=== PATIENT | male | born 1945 | race Caucasian/White ===

== ENCOUNTER 2021-12-01 16:25 | Inpatient (IN) | payer MEDICARE, OTHER ==
[~2021-12-01] VITALS: Ht 175.3 cm; Wt 64.0 kg
--- NOTE | 2021-12-01 16:25 | NUR ---
BIB PA FROM SNF C/O RIGHT REN MASS GROWTH, WOUND ON THE MASS AND HAS DRAINAGE. ATTACHED TO MONITOR, VITALS ARE WITHIN NORMAL LIMITS. PT IS A&OX2. AWAITING MD ORDERS.
[2021-12-01] MEDS ORDERED: POVI3780 TP (16:43)
[2021-12-01] MEDS ORDERED: DIVA-76 PO (16:43)
[2021-12-01] MEDS ORDERED: OLAN5TAB3 PO (16:43)
[2021-12-01] MEDS ORDERED: MULT-447 PO (16:43)
[2021-12-01] MEDS ORDERED: TRIH2TAB3 PO (16:43)
--- NOTE | 2021-12-01 16:52 | NUR ---
IV ESTABLISHED R AC 18G. LABS DRAWN AND SENT.
--- NOTE | 2021-12-01 16:57 | NUR ---
COVID TEST COLLECTED AND SENT
[2021-12-01] MEDS ORDERED: CLINDAMYCIN 600 MG in IV D5W 100 ML IV ONE (17:00)
--- NOTE | 2021-12-01 17:00 | NUR ---
MOVE SHEET SUBMITTED.
--- NOTE | 2021-12-01 17:48 | NUR ---
[facility] CALLED BOTTOM BLEACHER PAGED.
[2021-12-01 17:53] LABS: BASOPHILS % (AUTO) 0.6 % (0.0-2.0); EOSINOPHILS % (AUTO) 5.4 % (0.0-6.0); HEMATOCRIT 45 % (39-51); HEMOGLOBIN 15.3 g/dL (13.5-17.5); LYMPHOCYTES # (AUTO) 1.6 K/uL (0.8-4.8); LYMPHOCYTES % (AUTO) 27.1 % (20.0-44.0); MEAN CORPUSCULAR HGB CONC 34 g/dl (31.0-36.0); MEAN CORPUSCULAR VOLUME 92 fL (80-96); MONOCYTES % (AUTO) 16.8 % (2.0-12.0); NEUTROPHILS % (AUTO) 50.1 % (43.0-81.0); PLATELET COUNT (AUTO) 188 K/uL (150-450); RED BLOOD CELL COUNT(AUTO) 4.95 MIL/uL (4.5-6.0); WHITE BLOOD COUNT (AUTO) 5.9 K/uL (4.3-11.0)
[2021-12-01 18:03] LABS: CALCIUM, SERUM 9.8 mg/dL (8.5-10.1); CREATININE 0.8 mg/dL (0.6-1.3); POTASSIUM 4.4 mmol/L (3.5-5.1)
[2021-12-01 18:21] LABS: ALBUMIN 3.9 g/dL (3.4-5.0); BILIRUBIN,DIRECT 0.1 mg/dL (0.0-0.2); BILIRUBIN,TOTAL 0.4 mg/dL (0.2-1.0); TOTAL PROTEIN, SERUM 8.5 g/dL (6.4-8.2)
--- NOTE | 2021-12-01 20:20 | NUR ---
REPORT GIVEN TO MURRAY ADHIKARI
[2021-12-01] MEDS ORDERED: ONDANSETRON HCL/PF 4 MG/2 ML VIAL IVP PRN (20:30)
[2021-12-01] MEDS ORDERED: POVIDONE-IODINE OINT 28.4 GM TUBE TP ONE (20:30)
--- NOTE | 2021-12-01 20:34 | NUR ---
PATIENT TRANSFERRED TO [facility]
--- NOTE | 2021-12-01 20:35 | NUR ---
ADMISSION NOTES PT ARRIVED VIA GURNEY ACCOMPANIED BY EMT. AOx4, ABLE TO MAKE NEEDS KNOWN. ON RA AND TOLERATING WELL. NO SOB NOTED. NO S/SX OF RESPIRATORY DISTRESS NOTED. IV ACCESS IN RAC #18 G RUNNING NS @ 75 ML/HR. WOUND PICTURES TAKEN. WOUND CARE DONE. SAFETY PRECAUTIONS IN PLACE: BED IN LOWEST, LOCKED POSITION, SIDERAILS UPx2, AND BRAKES ON. TABLE AND CALL LIGHT WITHIN REACH. ALL NEEDS MET AT THIS TIME.
[2021-12-01] MEDS ORDERED: CLINDAMYCIN IV RTU IN D5W 900 MG/50 ML PIGGYBACK IV SCH (21:00)
[2021-12-01] MEDS: OLANZAPINE 5 MG TABLET PO SCH (21:24)
[2021-12-01] MEDS: DIVALPROEX SODIUM 250 MG TABLET.DR PO SCH (21:24)
[2021-12-01] MEDS: CLINDAMYCIN 900 MG in IV D5W 50 ML IV SCH (21:24)
[2021-12-01] MEDS: TRIHEXYPHENIDYL HCL 2 MG TABLET PO SCH (21:24)
[2021-12-01] MEDS: ENOXAPARIN SODIUM 40 MG/0.4 ML DISP.SYRIN SQ SCH (21:25)
[2021-12-01] MEDS: IV NS 0.9% 1,000 ML IV PRN (21:55)
[2021-12-01 22:07] LABS: BAND % (MANUAL) 1 % (0.0-5.0); EOSINOPHILS % (MANUAL) 2 % (0-4); LYMPHOCYTES % (MANUAL) 23 % (16-48); MONOCYTES % (MANUAL) 5 % (0-11.0); NEUTROPHILS % (MANUAL) 69 (42-76)
[2021-12-01 22:26] VITALS: BP 134/91
[2021-12-02] MEDS: CLINDAMYCIN 900 MG in IV D5W 50 ML IV SCH ×3 (04:24→20:15)
--- NOTE | 2021-12-02 06:35 | NUR ---
RN CLOSING NOTES PT LYING IN BED, ASLEEP, AWAKENS TO VERBAL STIMULI. AOx4, ABLE TO MAKE NEEDS KNOWN. ON RA AND TOLERATING WELL. NO SOB NOTED. NO S/SX OF RESPIRATORY DISTRESS NOTED. IV ACCESS IN RAC #18 G RUNNING NS @ 75 ML/HR. WOUND PICTURES TAKEN. WOUND CARE DONE. ALL ORDERS CARRIED OUT. ALL NEEDS MET. PT KEPT CLEAN AND DRY. SAFETY PRECAUTIONS IN PLACE: BED IN LOWEST, LOCKED POSITION, SIDERAILS UPx2, AND BRAKES ON. TABLE AND CALL LIGHT WITHIN REACH. WILL ENDORSE TO ONCOMING SHIFT FOR CATARINO.
[2021-12-02 06:55] LABS: BASOPHILS % (AUTO) 0.8 % (0.0-2.0); EOSINOPHILS % (AUTO) 6.8 % (0.0-6.0); HEMATOCRIT 40 % (39-51); HEMOGLOBIN 13.5 g/dL (13.5-17.5); LYMPHOCYTES # (AUTO) 1.2 K/uL (0.8-4.8); LYMPHOCYTES % (AUTO) 27.9 % (20.0-44.0); MEAN CORPUSCULAR HGB CONC 34 g/dl (31.0-36.0); MEAN CORPUSCULAR VOLUME 92 fL (80-96); MONOCYTES # (AUTO) 0.8 K/uL (0.1-1.30); MONOCYTES % (AUTO) 18.2 % (2.0-12.0); NEUTROPHILS % (AUTO) 46.3 % (43.0-81.0); PLATELET COUNT (AUTO) 156 K/uL (150-450); RED BLOOD CELL COUNT(AUTO) 4.33 MIL/uL (4.5-6.0); WHITE BLOOD COUNT (AUTO) 4.3 K/uL (4.3-11.0)
[2021-12-02 07:16] LABS: CALCIUM, SERUM 8.6 mg/dL (8.5-10.1); CARBON DIOXIDE 27 mmol/L (21-32); CHLORIDE 98 mmol/L (98-107); CREATININE 0.6 mg/dL (0.6-1.3); GLUCOSE 82 mg/dL (74-106); PHOSPHORUS 4.1 mg/dL (2.5-4.9); POTASSIUM 4.2 mmol/L (3.5-5.1); SODIUM SERUM 130 mmol/L (136-145); UREA NITROGEN, BLOOD 12 mg/dL (7-18)
--- NOTE | 2021-12-02 07:40 | NUR ---
MS RN OPENING NOTE PATIENT RECEIVED IN BED AND AWAKE. A/O X4 AND ABLE TO VERBALIZE ALL NEEDS. IV ACCESS TO RAC IN TACT AND PATENT WITH NS RUNNING CONTINUOUSLY @ 75ML/HR. NO C/O OR DISTRESS OBSERVED UPON ASSESSMENT. SAFETY MEASURES INTACT, CALL LIGHT WITHIN REACH. WILL CONT TO MONITOR.
[2021-12-02 08:00] VITALS: BP 116/93
--- NOTE | 2021-12-02 08:28 | NUR ---
WOUND CARE CONSULT: PT PRESENTS WITH LESION TO RT LOWER LEG, PRESENT ON ADMISSION. DR HURD CALLED FOR SURGICAL CONSULT. RECOMMENDATIONS MADE FOR SKIN PROTECTION. DISCUSSED WITH NURSING STAFF. MD IN AGREEMENT WITH PLAN OF CARE.
[2021-12-02] MEDS: TRIHEXYPHENIDYL HCL 2 MG TABLET PO SCH ×2 (08:34→16:24)
[2021-12-02] MEDS: DIVALPROEX SODIUM 250 MG TABLET.DR PO SCH ×3 (08:34→16:24)
[2021-12-02] MEDS: MULTIVIT W/MINERALS 1 TAB TABLET PO SCH (08:34)
[2021-12-02] MEDS: OLANZAPINE 5 MG TABLET PO SCH ×2 (08:35→20:15)
[2021-12-02 12:16] LABS: BAND % (MANUAL) 1 % (0.0-5.0); EOSINOPHILS % (MANUAL) 6 % (0-4); LYMPHOCYTES % (MANUAL) 28 % (16-48); MONOCYTES % (MANUAL) 14 % (0-11.0); NEUTROPHILS % (MANUAL) 51 (42-76)
[2021-12-02] MEDS: IV NS 0.9% 1,000 ML IV PRN (13:01)
[2021-12-02 16:00] VITALS: BP_SYST 108; BP_SYST 124; BP_DIAS 66; BP_DIAS 72
--- NOTE | 2021-12-02 18:48 | NUR ---
RN CLOSING NOTE PATIENT REMAINED IN BED AND INTERMITTENTLY SLEEPING ON SHIFT. CONTINUES TO BE A/O X4 AND ABLE TO VERBALIZE ALL NEEDS. IV ACCESS TO RAC REMAINS INTACT AND PATENT WITH NS RUNNING CONTINUOUSLY @ 75ML/HR. PATIENT RECEIVED IV ANTIBIOTICS ON SHIFT WITH NO S/SX OF ADVERSE REACTION TO MEDICATION. TOLERATED WEL. NO C/O PAIN OR DISTRESS OBSERVED ON SHIFT. PATIENT SEEN BY WOUND NURSE DURING SHIFT. TREATMENT TO AFFECTED AREA INCLUDES CLEANSING WITH DAKINS THEN COVERING WITH DRY DRESSING DAILY PER DR. MULLEN. PATIENT TOLERATED ALL MEALS WELL ON SHIFT. SAFETY MEASURES INTACT, CALL LIGHT WITHIN REACH. WILL CONT TO MONITOR.
--- NOTE | 2021-12-02 19:40 | NUR ---
RN OPENING NOTES RECEIVED PT IN BED,WATCHING TV. AOx4, ABLE TO MAKE NEEDS KNOWN. ON RA AND TOLERATING WELL. NO SOB NOTED. NO S/SX OF RESPIRATORY DISTRESS NOTED. IV ACCESS IN RAC #18 G RUNNING NS @ 75 ML/HR. SAFETY PRECAUTIONS IN PLACE: BED IN LOWEST, LOCKED POSITION, SIDERAILS UPx2, AND BRAKES ON. TABLE AND CALL LIGHT WITHIN REACH. ALL NEEDS MET AT THIS TIME.
[2021-12-02 20:00] VITALS: BP 115/75
[2021-12-02] MEDS: ENOXAPARIN SODIUM 40 MG/0.4 ML DISP.SYRIN SQ SCH ×2 (20:17→20:37)
[2021-12-02] MEDS ORDERED: CEFEPIME 2 GM in IV D5W 100 ML IV SCH ×2 (21:00→22:00)
[2021-12-03] MEDS: CLINDAMYCIN 900 MG in IV D5W 50 ML IV SCH ×3 (04:40→21:12)
--- NOTE | 2021-12-03 06:01 | NUR ---
RN NOTES DURING PT CARE NOTED NEW RASH AND REDNESS TO LOWER ABDOMEN AFTER GIVING FIRST DOSE OF CEFEPIME. JORGE LUIS ALLISON MADE AWARE. PER AMARILYS KANG CEFEPIME AND ORDERED 25 MG PO BENADRYL.
[2021-12-03] MEDS ORDERED: diphenhydrAMINE HCL 25 MG CAPSULE PO ONE (06:30)
--- NOTE | 2021-12-03 06:48 | NUR ---
RN CLOSING NOTES PT LAYING IN BED, ASLEEP, AWAKENS TO VERBAL STIMULI. AOx4, ABLE TO MAKE NEEDS KNOWN. ON RA AND TOLERATING WELL. NO SOB NOTED. NO S/SX OF RESPIRATORY DISTRESS NOTED. IV ACCESS IN RAC #18 G RUNNING NS @ 75 ML/HR. ALL ORDERS CARRIED OUT. ALL NEEDS MET. PT KEPT CLEAN AND DRY. WOUND CARE DONE. WOUND CULTURE COLLECTED. SAFETY PRECAUTIONS IN PLACE: BED IN LOWEST, LOCKED POSITION, SIDERAILS UPx2, AND BRAKES ON. TABLE AND CALL LIGHT WITHIN REACH. WILL ENDORSE TO ONCOMING SHIFT FOR CATARINO.
--- NOTE | 2021-12-03 07:35 | NUR ---
RN OPENING NOTES RECEIVED PT LYING IN BED WITH HOB ELEVATED, AOx4, HARD OF HEARING, ABLE TO MAKE NEEDS KNOWN. ON RA AND TOLERATING WELL AT 96%, BREATHING EVEN AND UNLABORED, NO SOB NOTED. NO S/SX OF ANY APPARENT DISTRESS NOTED. IV ACCESS IN RAC #18 G RUNNING NS @ 75 ML/HR, INFUSING WELL. PATIENT IS BED BOUND. SAFETY PRECAUTIONS IN PLACE: BED IN LOWEST POSITION, LOCKED, SIDERAILS UPx2, BED ALARM ON, TRAY TABLE AND CALL LIGHT WITHIN REACH. FOR POSSIBLE BIOPSY OF RLE WOUND TODAY. WILL CONTINUE TO MONITOR DURING SHIFT.
[2021-12-03 08:00] VITALS: BP 120/88
--- NOTE | 2021-12-03 08:16 | NUR ---
WOUND CARE CONSULT: PT SEEN FOR DRY LESION/SCAR TO TOP OF SCALP. NO TENDERNESS OR DRAINAGE NOTED. PT STATES HAD LASER TREATMENT AND WILL FOLLOW UP WITH HIS OWN DOCTOR AFTER DISCHARGE.
[2021-12-03] MEDS: TRIHEXYPHENIDYL HCL 2 MG TABLET PO SCH ×2 (09:05→17:01)
[2021-12-03] MEDS: OLANZAPINE 5 MG TABLET PO SCH ×2 (09:06→21:32)
[2021-12-03] MEDS: MULTIVIT W/MINERALS 1 TAB TABLET PO SCH (09:06)
[2021-12-03] MEDS: DIVALPROEX SODIUM 250 MG TABLET.DR PO SCH ×3 (09:06→17:01)
[2021-12-03] MEDS: DAKINS QUARTER STRENGTH (0.125%) 480 ML BOTTLE TOP SCH (09:15)
[2021-12-03] MEDS ORDERED: LIDOCAINE 1%-EPI 1:200,000 SDV 10 ML VIAL IJ ONE (14:00)
--- NOTE | 2021-12-03 14:11 | NUR ---
RN NOTES - DR MULLEN AT BEDSIDE COLLECTING BIOPSY OF THE RLL WOUND.
[2021-12-03 16:00] VITALS: BP 123/80
--- NOTE | 2021-12-03 16:50 | NUR ---
RN NOTES - IV INFILTRATION, WILL INSERT A NEW ACCESS.
[2021-12-03 17:00] VITALS: BP 123/80
[2021-12-03] MEDS: IV NS 0.9% 1,000 ML IV PRN (18:04)
--- NOTE | 2021-12-03 18:50 | NUR ---
RN CLOSING NOTES PT LYING IN BED WITH HOB ELEVATED, AOx4, ABLE TO MAKE NEEDS KNOWN. ON RA AND TOLERATING WELL AT 97%, BREATHING EVEN AND UNLABORED, NO SOB NOTED. NO S/SX OF ANY APPARENT DISTRESS NOTED. NEW IV ACCESS LEFT HAND G#24 RUNNING NS @ 75 ML/HR, INFUSING WELL. WOUND CARE PROVIDED. ALL NEEDS MET AND DUE MEDS GIVEN. SAFETY PRECAUTIONS MAINTAINED: BED IN LOWEST POSITION, LOCKED, SIDERAILS UPx2, BED ALARM ON, TRAY TABLE AND CALL LIGHT WITHIN REACH.
[2021-12-03 20:00] VITALS: BP 104/67
[2021-12-03] MEDS: ENOXAPARIN SODIUM 40 MG/0.4 ML DISP.SYRIN SQ SCH (21:52)
--- NOTE | 2021-12-03 21:53 | NUR ---
ANTICOAGULANT H/H 13.540 Plt 156 No s/s of bleeding. Given Lovenox injection co-signed by MURRAY Mena.
[2021-12-04] MEDS: CLINDAMYCIN 900 MG in IV D5W 50 ML IV SCH (05:24)
--- NOTE | 2021-12-04 06:17 | NUR ---
END OF SHIFT REPORT Patient in bed, Alert Oriented x3, Forgetful, confused at times. Oxygen sat 92% on RA, denies sob. RFA IV line intact, IVF infusing. On IV abx. Afebrile. Right leg wound, dressing clean and dry, no c/o pain at this time. No acute distress during the shift. Plan for cont IVF, Abx, Wound care. Fall precaution maintained. Wound cx G/S pending result. Patient refused bld draw for am lab, declined education. Will try and attempt again. Will endorse to oncoming RN.
--- NOTE | 2021-12-04 07:05 | NUR ---
MS RN OPENING NOTES RECEIVED PATIENT SLEEPING IN BED, A/Ox3, ABLE TO MAKE NEEDS KNOWN, EPISODES OF CONFUSION, [place] R SIDE. ON ROOM AIR NO S/S OF RESPIRATORY DISTRESS, NO S/S OF PAIN OR DISCOMFORT NOTED. IV ACCESS R FA #22 WITH NS RUNNING @75 ML/HR. PATIENT USES URINAL. SKIN ISSUES: R LOWER LEG LESION. SAFETY MEASURES IN PLACE: BED LOCKED AND IN LOWEST POSITION, SIDE RAILS UP x2, CALL LIGHT WITHIN REACH, HOB ELEVATED. WILL CONTINUE TO MONITOR.
[2021-12-04 08:00] VITALS: BP 111/73
[2021-12-04] MEDS: DAKINS QUARTER STRENGTH (0.125%) 480 ML BOTTLE TOP SCH (08:21)
[2021-12-04] MEDS: OLANZAPINE 5 MG TABLET PO SCH ×2 (08:21→21:40)
[2021-12-04] MEDS: MULTIVIT W/MINERALS 1 TAB TABLET PO SCH (08:21)
[2021-12-04] MEDS: DIVALPROEX SODIUM 250 MG TABLET.DR PO SCH ×3 (08:21→16:51)
[2021-12-04] MEDS: TRIHEXYPHENIDYL HCL 2 MG TABLET PO SCH ×2 (08:21→16:51)
[2021-12-04] MEDS: IV NS 0.9% 1,000 ML IV PRN ×2 (08:31→22:57)
[2021-12-04] MEDS: LEVOFLOXACIN (250MG) 250 MG TABLET PO SCH (11:32)
[2021-12-04 11:41] LABS: BASOPHILS % (AUTO) 0.6 % (0.0-2.0); EOSINOPHILS % (AUTO) 5.5 % (0.0-6.0); HEMATOCRIT 42 % (39-51); HEMOGLOBIN 14.2 g/dL (13.5-17.5); LYMPHOCYTES # (AUTO) 1.2 K/uL (0.8-4.8); LYMPHOCYTES % (AUTO) 24.6 % (20.0-44.0); MEAN CORPUSCULAR HGB CONC 34 g/dl (31.0-36.0); MEAN CORPUSCULAR VOLUME 91 fL (80-96); MONOCYTES # (AUTO) 0.7 K/uL (0.1-1.30); MONOCYTES % (AUTO) 13.6 % (2.0-12.0); NEUTROPHILS # (AUTO) 2.8 K/uL (1.8-8.9); NEUTROPHILS % (AUTO) 55.7 % (43.0-81.0); PLATELET COUNT (AUTO) 181 K/uL (150-450); RED BLOOD CELL COUNT(AUTO) 4.56 MIL/uL (4.5-6.0)
[2021-12-04 11:52] LABS: CALCIUM, SERUM 8.7 mg/dL (8.5-10.1); CREATININE 0.6 mg/dL (0.6-1.3); MAGNESIUM 1.9 mg/dL (1.8-2.4); PHOSPHORUS 3.5 mg/dL (2.5-4.9); POTASSIUM 4.1 mmol/L (3.5-5.1)
[2021-12-04 16:00] VITALS: BP 108/73
--- NOTE | 2021-12-04 18:45 | NUR ---
MS RN CLOSING NOTES PATIENT SLEEPING IN BED, A/Ox3, ABLE TO MAKE NEEDS KNOWN, EPISODES OF CONFUSION, [place] R SIDE. STABLE ON ROOM AIR NO S/S OF RESPIRATORY DISTRESS, NO S/S OF PAIN OR DISCOMFORT NOTED. IV ACCESS R FA #22 WITH NS RUNNING @75 ML/HR. PATIENT USES URINAL. ALL PRESCRIBED MEDICATION ADMINISTERED. SKIN ISSUES: R LOWER LEG LESION. SAFETY MEASURES MAINTAINED: BED LOCKED AND IN LOWEST POSITION, SIDE RAILS UP x2, CALL LIGHT WITHIN REACH, HOB ELEVATED SLIGHTLY. WILL ENDORSE TO NEXT SHIFT ANY CATARINO.
--- NOTE | 2021-12-04 19:15 | NUR ---
RN OPENING NOTE PATIENT IN BED, AWAKE. PATIENT IS ABLE TO MAKE NEEDS KNOWN. PATIENT NOTED TO HAVE HEARING DIFFICULTIES. PATIENT IS A/O X 2-3 AT THIS TIME. PATIENT HAS A RFA 22 G WITH NS ONGOING AT 75 ML/HR, INFUSING WELL. PATIENT DOES NOT REPORT OF ANY PAIN AT THIS TIME, BUT PATIENT REQUESTS IF HE CAN TAKE A STOOL SOFTENER OR LAXATIVE TONIGHT, NO BM FOR 3 DAYS. SAFETY MEASURES IN PLACE: BED LOCKED AND IN LOWEST POSITION, CALL LIGHT WITHIN REACH, SIDE RAILS UP. WILL MONITOR PATIENT CLOSELY.
[2021-12-04 20:00] VITALS: BP 99/68
[2021-12-04] MEDS ORDERED: MAGNESIUM HYDROXIDE 30 ML UDC PO ONE (21:30)
[2021-12-04] MEDS: DOXYCYCLINE HYCLATE (100 MG) 100 MG TABLET PO SCH (21:40)
--- NOTE | 2021-12-04 21:40 | NUR ---
RN NOTE MOM GIVEN FOR CONSTIPATION. MD ALSO ORDERED DOCUSATE SODIUM BID
[2021-12-04] MEDS: ENOXAPARIN SODIUM 40 MG/0.4 ML DISP.SYRIN SQ SCH (21:42)
--- NOTE | 2021-12-05 06:40 | NUR ---
RN CLOSING NOTE PATIENT IN BED, EYES CLOSED. PATIENT IS ABLE TO MAKE NEEDS KNOWN. PATIENT NOTED TO HAVE HEARING DIFFICULTIES. PATIENT IS A/O X 2-3 AT THIS TIME. PATIENT HAS A RFA 22 G WITH NS ONGOING AT 75 ML/HR, INFUSING WELL. PATIENT DID NOT REPORT ANY PAIN DURING THE SHIFT. SAFETY MEASURES IN PLACE: BED LOCKED AND IN LOWEST POSITION, CALL LIGHT WITHIN REACH, SIDE RAILS UP. ALL NEEDS MET AND ATTENDED. ALL ORDERS CARRIED OUT. WILL ENDORSE TO DAY SHIFT NURSE FOR CATARINO.
[2021-12-05 07:00] VITALS: BP 126/79
--- NOTE | 2021-12-05 07:07 | NUR ---
MS RN OPENING NOTES RECEIVED PATIENT SLEEPING IN BED, A/Ox3, ABLE TO MAKE NEEDS KNOWN, EPISODES OF CONFUSION, [place] R SIDE. ON ROOM AIR NO S/S OF RESPIRATORY DISTRESS, NO S/S OF PAIN OR DISCOMFORT NOTED. IV ACCESS R FA #22 WITH NS RUNNING @75 ML/HR. PATIENT USES URINAL. SKIN ISSUES: R LOWER LEG LESION. SAFETY MEASURES IN PLACE: BED LOCKED AND IN LOWEST POSITION, SIDE RAILS UP x2, CALL LIGHT WITHIN REACH, HOB ELEVATED. WILL CONTINUE TO MONITOR.
[2021-12-05] MEDS: OLANZAPINE 5 MG TABLET PO SCH ×2 (09:18→21:10)
[2021-12-05] MEDS: MULTIVIT W/MINERALS 1 TAB TABLET PO SCH (09:18)
[2021-12-05] MEDS: TRIHEXYPHENIDYL HCL 2 MG TABLET PO SCH ×2 (09:18→16:12)
[2021-12-05] MEDS: DAKINS QUARTER STRENGTH (0.125%) 480 ML BOTTLE TOP SCH (09:18)
[2021-12-05] MEDS: DIVALPROEX SODIUM 250 MG TABLET.DR PO SCH ×3 (09:18→16:12)
[2021-12-05] MEDS: DOXYCYCLINE HYCLATE (100 MG) 100 MG TABLET PO SCH ×2 (09:18→21:09)
[2021-12-05] MEDS: DOCUSATE SODIUM 100 MG CAPSULE PO SCH ×2 (09:18→16:11)
[2021-12-05] MEDS ORDERED: DOXY100T2 PO (10:07)
[2021-12-05] MEDS ORDERED: LEVO250T59 PO (10:07)
[2021-12-05] MEDS: LEVOFLOXACIN (250MG) 250 MG TABLET PO SCH (10:34)
[2021-12-05 16:00] VITALS: BP 119/81
[2021-12-05] MEDS: IV NS 0.9% 1,000 ML IV PRN (16:35)
--- NOTE | 2021-12-05 18:38 | NUR ---
MS RN CLOSING NOTES PATIENT SLEEPING IN BED, A/Ox3, ABLE TO MAKE NEEDS KNOWN, EPISODES OF CONFUSION, [place] R SIDE. STABLE ON ROOM AIR NO S/S OF RESPIRATORY DISTRESS, NO S/S OF PAIN OR DISCOMFORT NOTED. IV ACCESS R FA #22 WITH NS RUNNING @75 ML/HR. PATIENT USES URINAL. ALL PRESCRIBED MEDICATION ADMINISTERED. SKIN ISSUES: R LOWER LEG LESION. SAFETY MEASURES MAINTAINED: BED LOCKED AND IN LOWEST POSITION, SIDE RAILS UP x2, CALL LIGHT WITHIN REACH, HOB ELEVATED SLIGHTLY. WILL ENDORSE TO NEXT SHIFT ANY CATARINO.
[2021-12-05 20:00] VITALS: BP 102/73
[2021-12-05] MEDS: ENOXAPARIN SODIUM 40 MG/0.4 ML DISP.SYRIN SQ SCH (21:17)
[2021-12-06] MEDS: IV NS 0.9% 1,000 ML IV PRN ×2 (01:19→18:10)
--- NOTE | 2021-12-06 07:07 | NUR ---
MS RN OPENING NOTES RECEIVED PATIENT SLEEPING IN BED, A/Ox3, ABLE TO MAKE NEEDS KNOWN, EPISODES OF CONFUSION, [place] R SIDE. ON ROOM AIR NO S/S OF RESPIRATORY DISTRESS, NO S/S OF PAIN OR DISCOMFORT NOTED. IV ACCESS R FA #22 WITH NS RUNNING @75 ML/HR. PATIENT USES URINAL. SKIN ISSUES: R LOWER LEG LESION. SAFETY MEASURES IN PLACE: BED LOCKED AND IN LOWEST POSITION, SIDE RAILS UP x2, CALL LIGHT WITHIN REACH, HOB ELEVATED. WILL CONTINUE TO MONITOR.
[2021-12-06 08:00] VITALS: BP 123/73
[2021-12-06] MEDS: TRIHEXYPHENIDYL HCL 2 MG TABLET PO SCH ×2 (09:34→16:38)
[2021-12-06] MEDS: DOCUSATE SODIUM 100 MG CAPSULE PO SCH ×2 (09:34→16:38)
[2021-12-06] MEDS: OLANZAPINE 5 MG TABLET PO SCH ×2 (09:34→20:59)
[2021-12-06] MEDS: MULTIVIT W/MINERALS 1 TAB TABLET PO SCH (09:34)
[2021-12-06] MEDS: DIVALPROEX SODIUM 250 MG TABLET.DR PO SCH ×3 (09:34→16:38)
[2021-12-06] MEDS: DOXYCYCLINE HYCLATE (100 MG) 100 MG TABLET PO SCH ×2 (09:34→20:59)
[2021-12-06] MEDS: DAKINS QUARTER STRENGTH (0.125%) 480 ML BOTTLE TOP SCH (09:35)
[2021-12-06] MEDS: LEVOFLOXACIN (250MG) 250 MG TABLET PO SCH (12:23)
[2021-12-06 16:00] VITALS: BP 110/72
[2021-12-06] MEDS: ENSURE ENLIVE 237 ML LIQUID (VANILLA) PO SCH (17:26)
--- NOTE | 2021-12-06 18:38 | NUR ---
MS RN CLOSING NOTES PATIENT AWAKE IN BED, A/Ox3, ABLE TO MAKE NEEDS KNOWN, EPISODES OF CONFUSION, [place] R SIDE. STABLE ON ROOM AIR NO S/S OF RESPIRATORY DISTRESS, NO S/S OF PAIN OR DISCOMFORT NOTED. IV ACCESS R FA #22 WITH NS RUNNING @75 ML/HR. PATIENT USES URINAL. ALL PRESCRIBED MEDICATION ADMINISTERED. SKIN ISSUES: R LOWER LEG LESION. SAFETY MEASURES MAINTAINED: BED LOCKED AND IN LOWEST POSITION, SIDE RAILS UP x2, CALL LIGHT WITHIN REACH, HOB ELEVATED SLIGHTLY. WILL ENDORSE TO NEXT SHIFT ANY CATARINO.
--- NOTE | 2021-12-06 19:25 | NUR ---
MS RN OPENING NOTE RECEIVED PATIENT AWAKE IN BED, A/Ox3, ABLE TO MAKE NEEDS KNOWN, EPISODES OF CONFUSION. PT IS HARD OF HEARING TO RIGHT EAR. ON ROOM AIR, TOLERATING RA WELL. NO S/S OF RESPIRATORY DISTRESS, NO S/S OF PAIN OR DISCOMFORT NOTED. IV ACCESS TO RIGHT FA #22 WITH NS RUNNING @75 ML/HR. PATIENT USES URINAL. HAS RIGHT LOWER LEG LESION. SAFETY MEASURES IN PLACE: BED LOCKED AND IN LOWEST POSITION, SIDE RAILS UP x2, CALL LIGHT WITHIN REACH, HOB ELEVATED. WILL CONTINUE TO MONITOR.
[2021-12-06 20:00] VITALS: BP 121/79
[2021-12-06] MEDS: ENOXAPARIN SODIUM 40 MG/0.4 ML DISP.SYRIN SQ SCH (21:01)
--- NOTE | 2021-12-07 07:20 | NUR ---
MS RN CLOSING NOTE LEFT PATIENT IN BED, EYES CLOSED. PATIENT IS ABLE TO MAKE NEEDS KNOWN. PATIENT NOTED TO HAVE HEARING DIFFICULTIES. PATIENT IS A/O X 2-3. PATIENT HAS A RFA 22 G WITH NS ONGOING AT 75 ML/HR, INFUSING WELL. PATIENT DID NOT REPORT ANY PAIN DURING THE SHIFT. SAFETY MEASURES IN PLACE: BED LOCKED AND IN LOWEST POSITION, CALL LIGHT WITHIN REACH, SIDE RAILS UP. ALL NEEDS ATTENDED. ALL ORDERS CARRIED OUT. WILL ENDORSE TO DAY SHIFT NURSE FOR CATARINO.
--- NOTE | 2021-12-07 07:31 | NUR ---
MS RN OPENING NOTES RECEIVED PATIENT AWAKE IN BED, A/Ox3, ABLE TO MAKE NEEDS KNOWN, EPISODES OF CONFUSION, HARD OF HEARING ON RIGHT EAR. ON ROOM AIR .NO S/S OF RESPIRATORY DISTRESS, NO S/S OF PAIN OR DISCOMFORT NOTED. IV ACCESS R FA #22 WITH NS RUNNING @75 ML/HR. IV SITE PATENT AND INTACT.PATIENT USES URINAL. RIGHT LOWER LEG LESION. DRESSING INTACT.ALL SAFETY MEASURES IN PLACE: BED LOCKED AND IN LOWEST POSITION, SIDE RAILS UP x2, CALL LIGHT AND TABLE WITHIN REACH, HOB ELEVATED. WILL CONTINUE TO MONITOR.
[2021-12-07] MEDS: IV NS 0.9% 1,000 ML IV PRN ×2 (07:38→20:34)
[2021-12-07 08:00] VITALS: BP 135/82
[2021-12-07] MEDS: DOXYCYCLINE HYCLATE (100 MG) 100 MG TABLET PO SCH ×2 (08:43→20:20)
[2021-12-07] MEDS: MULTIVIT W/MINERALS 1 TAB TABLET PO SCH (08:44)
[2021-12-07] MEDS: OLANZAPINE 5 MG TABLET PO SCH ×2 (08:44→20:19)
[2021-12-07] MEDS: DIVALPROEX SODIUM 250 MG TABLET.DR PO SCH ×3 (08:45→16:36)
[2021-12-07] MEDS: TRIHEXYPHENIDYL HCL 2 MG TABLET PO SCH ×2 (08:45→16:36)
[2021-12-07] MEDS: DOCUSATE SODIUM 100 MG CAPSULE PO SCH ×2 (08:45→16:36)
[2021-12-07] MEDS: ENSURE ENLIVE 237 ML LIQUID (VANILLA) PO SCH ×2 (08:50→16:52)
[2021-12-07] MEDS: DAKINS QUARTER STRENGTH (0.125%) 480 ML BOTTLE TOP SCH (08:52)
[2021-12-07] MEDS: LEVOFLOXACIN (250MG) 250 MG TABLET PO SCH (11:45)
[2021-12-07 16:00] VITALS: BP 138/78
[2021-12-07 20:00] VITALS: BP 119/83
[2021-12-07] MEDS: ENOXAPARIN SODIUM 40 MG/0.4 ML DISP.SYRIN SQ SCH (20:22)
[2021-12-07 20:51] LABS: CALCIUM, SERUM 8.8 mg/dL (8.5-10.1); CREATININE 0.7 mg/dL (0.6-1.3); POTASSIUM 3.9 mmol/L (3.5-5.1)
--- NOTE | 2021-12-08 06:43 | NUR ---
MS RN CLOSING NOTES PATIENT AWAKE IN BED, A/Ox3, ABLE TO MAKE NEEDS KNOWN, EPISODES OF CONFUSION, HARD OF HEARING ON RIGHT EAR. ON ROOM AIR .NO S/S OF RESPIRATORY DISTRESS, NO S/S OF PAIN OR DISCOMFORT NOTED. IV ACCESS R FA #22 WITH NS RUNNING @75 ML/HR. IV SITE PATENT AND INTACT.PATIENT USES URINAL. RIGHT LOWER LEG LESION. DRESSING INTACT.ALL SAFETY MEASURES IN PLACE: ALL DUE MEDS GIVEN ORDERED.BED LOCKED AND IN LOWEST POSITION, SIDE RAILS UP x2, CALL LIGHT AND TABLE WITHIN REACH, HOB ELEVATED. WILL ENDORSE FOR CATARINO.
--- NOTE | 2021-12-08 07:24 | NUR ---
MS RN OPENING NOTES RECEIVED PATIENT AWAKE IN BED IN NO ACUTE SIGNS OF DISTRESS. A/O X 3, VERBALLY RESPONSIVE, HARD OF HEARING ON RIGHT EAR, DENIES PAIN OR ANY DISCOMFORTS AT THIS TIME. ON ROOM AIR, TOLERATING WELL, BREATHING EVEN AND UNLABORED. IV ACCESS ON RFA #222G INTACT WITH IVF OF NS RUNNING AT 75 ML/HR, NO /S OF INFILTRATION AT SITE NOTED. SAFETY MEASURES MAINTAINED: CALL LIGHT WITHIN REACH, SIDE RAILS UP X2, BED LOCKED IN LOWEST POSITION. WILL CONTINUE TO MONITOR PT
[2021-12-08 08:00] VITALS: BP 128/79
[2021-12-08] MEDS: ENSURE ENLIVE 237 ML LIQUID (VANILLA) PO SCH ×2 (08:28→16:48)
[2021-12-08] MEDS: MULTIVIT W/MINERALS 1 TAB TABLET PO SCH (08:28)
[2021-12-08] MEDS: DIVALPROEX SODIUM 250 MG TABLET.DR PO SCH ×3 (08:28→16:47)
[2021-12-08] MEDS: OLANZAPINE 5 MG TABLET PO SCH ×2 (08:28→21:03)
[2021-12-08] MEDS: DOCUSATE SODIUM 100 MG CAPSULE PO SCH ×2 (08:28→16:47)
[2021-12-08] MEDS: DOXYCYCLINE HYCLATE (100 MG) 100 MG TABLET PO SCH ×2 (08:28→21:03)
[2021-12-08] MEDS: DAKINS QUARTER STRENGTH (0.125%) 480 ML BOTTLE TOP SCH (09:18)
[2021-12-08] MEDS: TRIHEXYPHENIDYL HCL 2 MG TABLET PO SCH ×2 (09:18→16:47)
[2021-12-08] MEDS: LEVOFLOXACIN (250MG) 250 MG TABLET PO SCH (12:10)
[2021-12-08 16:00] VITALS: BP 124/79
[2021-12-08] MEDS: IV NS 0.9% 1,000 ML IV PRN (17:30)
--- NOTE | 2021-12-08 18:43 | NUR ---
MS RN CLOSING NOTES PATIENT IN BED WATCHING TV AT THIS TIME. HOB ELEVATED. A/O X 3, ABLE TO COMMUNICATE VERBALLY, HARD OF HEARING ON RIGHT EAR. PT FOR RIGHT LOWER LEG WOUND SURGERY ( EXCISON) TOMORROW BY DR MULLEN, ALL CONSENTS SIGNED AND PLACE IN PT'S CAHRT. NPO POST MIDNIGHT TO BE ENFORCED. ON ROOM AIR, TOLERATING WELL, BREATHING EVEN AND UNLABORED. IV ACCESS ON RFA #22G INTACT WITH IVF OF NS RUNNING AT 75 ML/HR, NO S/SX OF INFILTRATION AT SITE NOTED. ALL NEEDS AND CARE PROVIDED WELL. SAFETY MEASURES MAINTAINED: CALL LIGHT WITHIN REACH, SIDE RAILS UP X2, BED LOCKED IN LOWEST POSITION. WILL ENDORSE CATARINO TO HOTEL ROOM ATTENDANT NURSE.
--- NOTE | 2021-12-08 19:52 | NUR ---
RN OPENING NOTES RECEIVED PT IN BED, AWAKE, WATCHING TV. AOx4, ABLE TO MAKE NEEDS KNOWN. ON RA AND TOLERATING WELL. NO SOB NOTED. NO S/SX OF RESPIRATORY DISTRESS NOTED. IV ACCESS IN RFA #22G RUNNING NS @ 75 ML/HR. SAFETY PRECAUTIONS IN PLACE: BED IN LOWEST, LOCKED POSITION, SIDERAILS UPx2, AND BRAKES ON. TABLE AND CALL LIGHT WITHIN REACH. ALL NEEDS MET AT THIS TIME.
[2021-12-08 20:00] VITALS: BP 120/74
[2021-12-08] MEDS: ENOXAPARIN SODIUM 40 MG/0.4 ML DISP.SYRIN SQ SCH (21:00)
--- NOTE | 2021-12-08 21:06 | NUR ---
RN NOTES DID NOT ADMINISTER LOVENOX BECAUSE PT WILL HAVE PROCEDURE TOMORROW 12/09.
[2021-12-08] MEDS: ACETAMINOPHEN 325 MG TABLET PO PRN (21:14)
[2021-12-09] MEDS: IV NS 0.9% 1,000 ML IV PRN (05:15)
[2021-12-09 06:57] LABS: BASOPHILS % (AUTO) 0.4 % (0.0-2.0); EOSINOPHILS % (AUTO) 3.9 % (0.0-6.0); HEMATOCRIT 40 % (39-51); HEMOGLOBIN 13.6 g/dL (13.5-17.5); LYMPHOCYTES # (AUTO) 1.4 K/uL (0.8-4.8); LYMPHOCYTES % (AUTO) 22.3 % (20.0-44.0); MEAN CORPUSCULAR HGB CONC 34 g/dl (31.0-36.0); MEAN CORPUSCULAR VOLUME 91 fL (80-96); MONOCYTES # (AUTO) 0.8 K/uL (0.1-1.30); MONOCYTES % (AUTO) 13.1 % (2.0-12.0); NEUTROPHILS # (AUTO) 3.7 K/uL (1.8-8.9); NEUTROPHILS % (AUTO) 60.3 % (43.0-81.0); PLATELET COUNT (AUTO) 195 K/uL (150-450); RED BLOOD CELL COUNT(AUTO) 4.38 MIL/uL (4.5-6.0); WHITE BLOOD COUNT (AUTO) 6.2 K/uL (4.3-11.0)
--- NOTE | 2021-12-09 06:59 | NUR ---
RN CLOSING NOTES PT IN BED, ASLEEP, AWAKENS TO VERBAL STIMULI. AOx4, ABLE TO MAKE NEEDS KNOWN. ON RA AND TOLERATING WELL. NO SOB NOTED. NO S/SX OF RESPIRATORY DISTRESS NOTED. IV ACCESS IN RFA #22G AND LFA #18G RUNNING NS @ 75 ML/HR. ALL ORDERS CARRIED OUT. ALL NEEDS MET. PT KEPT CLEAN AND DRY. PT KEPT NPO AFTER MIDNIGHT FOR SURGERY. SAFETY PRECAUTIONS IN PLACE: BED IN LOWEST, LOCKED POSITION, SIDERAILS UPx2, AND BRAKES ON. TABLE AND CALL LIGHT WITHIN REACH. WILL ENDORSE TO ONCOMING SHIFT FOR CATARINO.
--- NOTE | 2021-12-09 07:07 | NUR ---
MS RN OPENING NOTES RECEIVED PATIENT AWAKE IN BED, A/Ox3, ABLE TO MAKE NEEDS KNOWN, EPISODES OF CONFUSION, [place] R SIDE. ON ROOM AIR NO S/S OF RESPIRATORY DISTRESS, NO S/S OF PAIN OR DISCOMFORT NOTED. IV ACCESS L FA #18 WITH NS RUNNING @75 ML/HR AND R FA #22G SL. PATIENT USES URINAL. SKIN ISSUES: R LOWER LEG LESION. SAFETY MEASURES IN PLACE: BED LOCKED AND IN LOWEST POSITION, SIDE RAILS UP x2, CALL LIGHT WITHIN REACH, HOB ELEVATED. WILL CONTINUE TO MONITOR.
[2021-12-09 07:48] LABS: CALCIUM, SERUM 9.1 mg/dL (8.5-10.1); CARBON DIOXIDE 28 mmol/L (21-32); CHLORIDE 100 mmol/L (98-107); CREATININE 0.6 mg/dL (0.6-1.3); GLUCOSE 76 mg/dL (74-106); PHOSPHORUS 3.1 mg/dL (2.5-4.9); POTASSIUM 3.9 mmol/L (3.5-5.1); SODIUM SERUM 135 mmol/L (136-145); UREA NITROGEN, BLOOD 11 mg/dL (7-18)
[2021-12-09 08:00] VITALS: BP 121/84
[2021-12-09] MEDS ORDERED: ANESTHESIA TRAY IN PYXIS 1 EA TRAY MC ONE (08:46)
[2021-12-09] MEDS ORDERED: SEVOFLURANE 250 ML BOTTLE IH ONE (08:47)
[2021-12-09] MEDS: OLANZAPINE 5 MG TABLET PO SCH ×2 (08:55→21:56)
[2021-12-09] MEDS: DIVALPROEX SODIUM 250 MG TABLET.DR PO SCH ×3 (08:55→16:48)
[2021-12-09] MEDS: ENSURE ENLIVE 237 ML LIQUID (VANILLA) PO SCH ×2 (08:58→17:12)
[2021-12-09] MEDS: MULTIVIT W/MINERALS 1 TAB TABLET PO SCH (08:58)
[2021-12-09] MEDS: DOXYCYCLINE HYCLATE (100 MG) 100 MG TABLET PO SCH (08:58)
[2021-12-09] MEDS: DOCUSATE SODIUM 100 MG CAPSULE PO SCH ×2 (08:58→16:48)
[2021-12-09] MEDS: TRIHEXYPHENIDYL HCL 2 MG TABLET PO SCH ×2 (08:58→16:48)
[2021-12-09] MEDS: DAKINS QUARTER STRENGTH (0.125%) 480 ML BOTTLE TOP SCH (09:01)
--- NOTE | 2021-12-09 10:00 | NUR ---
RN NOTES PATIENT WAS TAKEN TO SURGERY BY TWO OR STAFF. STABLE, WILL AWAIT REPORT.
[2021-12-09] MEDS ORDERED: LIDOCAINE HCL/MPF 1% 30 ML VIAL IJ ONE (10:28)
[2021-12-09] MEDS ORDERED: BUPIVACAINE MPF 0.5% W/EPI INJ 30 ML VIAL ONE (10:33)
[2021-12-09] MEDS ORDERED: FENTANYL PF 100MCG/2ML AMPUL ONE (10:34)
[2021-12-09 12:40] VITALS: BP 115/76
[2021-12-09] MEDS: LEVOFLOXACIN (250MG) 250 MG TABLET PO SCH (12:45)
--- NOTE | 2021-12-09 12:45 | NUR ---
RN NOTES PATIENT RETURNED FROM SURGERY ON O2 VIA NC @ 2L, NO S/S OF SOB OR RESPIRATORY DISTRESS. V/S STABLE, SITE WRAPPED AND NO S/S OF DRAINAGE OR BLEEDING. PATIENT IS STABLE, ABLE TO MAKE NEEDS KNOWN AND REQUESTING FOOD. WILL CONTINUE TO MONITOR.
[2021-12-09 13:10] VITALS: BP 117/75
[2021-12-09 13:40] VITALS: BP 120/78
[2021-12-09 15:53] VITALS: BP 119/52
--- NOTE | 2021-12-09 18:36 | NUR ---
MS RN CLOSING NOTES PATIENT AWAKE IN BED, A/Ox3, ABLE TO MAKE NEEDS KNOWN, EPISODES OF CONFUSION, [id number] R SIDE. STABLE ON ROOM AIR NO S/S OF RESPIRATORY DISTRESS, NO S/S OF PAIN OR DISCOMFORT NOTED. IV ACCESS L FA #18 WITH NS RUNNING @75 ML/HR AND R FA #22G SL. PATIENT USES URINAL. SKIN ISSUES: R LOWER LEG SURGICAL SITE. SAFETY MEASURES MAINTAINED: BED LOCKED AND IN LOWEST POSITION, SIDE RAILS UP x2, CALL LIGHT WITHIN REACH, HOB ELEVATED. WILL ENDORSE TO NEXT SHIFT ANY CATARINO.
--- NOTE | 2021-12-09 19:25 | NUR ---
RN CLOSING NOTES RECEIVED PT IN BED, AWAKE, WATCHING TV. AOx4, ABLE TO MAKE NEEDS KNOWN. ON RA AND TOLERATING WELL. NO SOB NOTED. NO S/SX OF RESPIRATORY DISTRESS NOTED. IV ACCESS IN RFA #22G RUNNING NS @ 75 ML/HR. SAFETY PRECAUTIONS IN PLACE: BED IN LOWEST, LOCKED POSITION, SIDERAILS UPx2, AND BRAKES ON. TABLE AND CALL LIGHT WITHIN REACH. ALL NEEDS MET AT THIS TIME. Addendum: 12/09/21 at 2106 by MARGARITA LACKEY RN SHOULD BE RN OPENING NOTES. Addendum: 12/09/21 at 2109 by MARGARITA LACKEY RN DRESSING TO RIGHT LOWER EXTREMITY IS CLEAN, DRY, AND INTACT.
[2021-12-09 20:00] VITALS: BP 98/59
[2021-12-09] MEDS: ENOXAPARIN SODIUM 40 MG/0.4 ML DISP.SYRIN SQ SCH (21:00)
--- NOTE | 2021-12-09 21:09 | NUR ---
RN NOTES DID NOT ADMINISTER LOVENOX SINCE PATIENT HAD EXCISION OF SQUAMOUS CELL CARCINOMA TODAY.
--- NOTE | 2021-12-09 21:41 | NUR ---
RN NOTES MADE NASIR SALGADO AWARE OF PATIENT'S HYPOTENSION 83/50. REASSESSED BLOOD PRESSURE MULTIPLE TIMES. DRESSING IS CLEAN, DRY, AND INTACT. DENIES PAIN AND IS AOx4. Addendum: 12/09/21 at 2206 by MARGARITA LACKEY RN ORDERED 1 L BOLUS OF NS.
[2021-12-09] MEDS ORDERED: IV NS 0.9% 1,000 ML IV ONE (22:00)
[2021-12-10] MEDS: IV NS 0.9% 1,000 ML IV PRN (00:34)
[2021-12-10] MEDS: ACETAMINOPHEN 325 MG TABLET PO PRN (03:30)
--- NOTE | 2021-12-10 06:23 | NUR ---
RN NOTES PT COMPLAINED OF PAIN IN RIGHT LOWER EXTREMITY. DRESSING C/D/I. DR. SALGADO MADE AWARE AND ORDERED NORCO 5/325 PO ONCE.
[2021-12-10] MEDS ORDERED: HYDROCODONE/APAP 5/325MG TABLET PO ONE (06:30)
--- NOTE | 2021-12-10 06:32 | NUR ---
RN NOTES ADMINISTERED NORCO FOR PAIN PER MD ORDER. VS WNL.
--- NOTE | 2021-12-10 06:53 | NUR ---
RN CLOSING NOTES PT IN BED, ASLEEP, AWAKENS TO VERBAL STIMULI. AOx4, ABLE TO MAKE NEEDS KNOWN. ON RA AND TOLERATING WELL. NO SOB NOTED. NO S/SX OF RESPIRATORY DISTRESS NOTED. IV ACCESS IN RFA #22G RUNNING NS @ 75 ML/HR. ALL ORDERS CARRIED OUT. ALL NEEDS MET. PT KEPT CLEAN AND DRY. TREATED PAIN THROUGHOUT SHIFT. DRESSING TO RIGHT LOWER EXTREMITY IS CLEAN, DRY, AND INTACT. SAFETY PRECAUTIONS IN PLACE: BED IN LOWEST, LOCKED POSITION, SIDERAILS UPx2, AND BRAKES ON. TABLE AND CALL LIGHT WITHIN REACH. WILL ENDORSE TO ONCOMING SHIFT FOR CATARINO.
--- NOTE | 2021-12-10 07:55 | NUR ---
RN OPENING NOTE PATIENT AWAKE IN BED RESTING. A/O X4, NO PAIN NOTED AT THIS TIME. ON ROOM AIR, NO DISTRESS OR SHORTNESS OF BREATH NOTED. IV ACCESS RFA #22G, INTACT, PATENT AND FLUSHING WELL. FALL AND SAFETY MEASURES IN PLACE, BED ALARM ON, BED IN LOW AND LOCK POSITION, CALL LIGHT AND TABLE WITHIN EASY REACH, SIDE RAILS UP X2. WILL CONTINUE TO MONITOR.
[2021-12-10 08:00] VITALS: BP 105/70
[2021-12-10] MEDS: DIVALPROEX SODIUM 250 MG TABLET.DR PO SCH ×2 (09:27→12:13)
[2021-12-10] MEDS: TRIHEXYPHENIDYL HCL 2 MG TABLET PO SCH (09:27)
[2021-12-10] MEDS: OLANZAPINE 5 MG TABLET PO SCH (09:27)
[2021-12-10] MEDS: ENSURE ENLIVE 237 ML LIQUID (VANILLA) PO SCH (09:28)
[2021-12-10] MEDS: MULTIVIT W/MINERALS 1 TAB TABLET PO SCH (09:28)
[2021-12-10] MEDS: DOCUSATE SODIUM 100 MG CAPSULE PO SCH (09:30)
[2021-12-10] MEDS: DAKINS QUARTER STRENGTH (0.125%) 480 ML BOTTLE TOP SCH (09:30)
[2021-12-10] MEDS: LEVOFLOXACIN (250MG) 250 MG TABLET PO SCH (10:45)
[2021-12-10] MEDS ORDERED: LINEZOLID 600 MG TABLET PO SCH (12:00)
--- NOTE | 2021-12-10 14:32 | NUR ---
RADIATION / CHEMISTRY TECHNICIAN NOTE PATIENT WAS DISCHARGE IN STABLE MEDICAL CONDITION. A/O X4. V/S TAKEN STABLE AND RECORDED. NO IV ACCESS. SKIN ASSESSMENT DONE AND PICTURES TAKEN. NAME ARM BAND REMOVED. ALL BELONGINGS CHECKED AND SIGNED. HEALTH TEACHING AND DISCHARGE INSTRUCTIONS GIVEN AND VERBALIZED UNDERSTANDING. REPORT GIVEN TO ASHKAN AVILES AT [facility] [phone]. INSTRUCTED TO FOLLOW UP WITH HER PRIMARY CARE DOCTOR. DISCUSSED PRESCRIPTIONS WITH PATIENT AND NURSE AT [facility] AND INSTRUCTED IN CASE OF EMERGENCY TO CALL 911 OR GO TO NEAREST ER. PATIENT LEFT UNIT VIA GURNEY WITH NO SIGNS OF DISTRESS, ACCOMPANIED BY PARAMEDICS. PATIENT WENT BACK TO [facility], ROOM 7A. CHARGE NURSE AWARE OF DISCHARGE.
== END 2021-12-10 14:45 | DRG 570 ==
LOC: ER 16:31 → MED 20:11
PROVIDERS: ADMIT Nurse Practitioner Acute Care; ATTEND Internal Medicine
PROC: 0HBKXZZ Excision of Right Lower Leg Skin, External Approach (ICD-10-PCS; principal; 2021-12-03)
PROC: 0JBN0ZZ Excision of Right Lower Leg Subcutaneous Tissue and Fascia, Open Approach (ICD-10-PCS; 2021-12-09)
DX: C44.729 Squamous cell carcinoma of skin of left lower limb, including hip (principal); G93.41 Metabolic encephalopathy; L03.115 Cellulitis of right lower limb; E87.1 Hypo-osmolality and hyponatremia; E86.0 Dehydration; F02.80 Dementia in other diseases classified elsewhere, unspecified severity, without behavioral disturbance, psychotic disturbance, mood disturbance, and anxiety; E86.1 Hypovolemia; G20 Parkinson's disease; Z20.822 Contact with and (suspected) exposure to COVID-19; F20.9 Schizophrenia, unspecified; J44.9 Chronic obstructive pulmonary disease, unspecified; M62.50 Muscle wasting and atrophy, not elsewhere classified, unspecified site
CPT/HCPCS: 36415; 71045-TC; 80048-TC; 80076-TC; 83605-TC; 83735-TC; 84100-TC; 85025-TC; 85730-TC; 87040-TC; 87070-TC; 87081-TC; 87186-TC; 97110-TC; 97116-TC; 97530-TC; A6209; A6253; A6403; C9803; G0378; J0690; J0692; J1100; J1650; J1885; J2405; J2704; J3010; J3490; J7030; J7060; Q0163